=== PATIENT | female | born 1965 | race Caucasian/White ===

== ENCOUNTER 2021-11-09 05:02 | Day surgery (SDC) | payer OTHER ==
[2021-11-04 14:44] VITALS: BMI 30.7
[2021-11-09] MEDS ORDERED: MIDAZOLAM HCL 2 MG/2 ML SINGLE DOSE VIAL ONE (12:33)
[2021-11-09] MEDS ORDERED: ACETAMINOPHEN 1000 MG/100 ML BAG IVPB ONE (13:29)
[2021-11-09] MEDS ORDERED: DEXTROSE 5%-0.45% SALINE 1,000 ML IV SCH (13:30)
[2021-11-09] MEDS ORDERED: IBUPROFEN 800 MG/8 ML IJ IVPB SCH (13:30)
[2021-11-09] MEDS ORDERED: ceFAZolin SODIUM 1 GM VIAL ONE (13:33)
[2021-11-09] MEDS ORDERED: ceFAZolin SODIUM 1 GM VIAL IVPB ONE (13:35)
[2021-11-09] MEDS ORDERED: PROPOFOL 20 ML ONE (13:37)
[2021-11-09 15:55] VITALS: RESP 20; TEMP 98.1
[2021-11-09 16:00] VITALS: BP 118/74; PULSE 65
== END 2021-11-09 15:55 | disposition home or self-care (01) ==
LOC: JASU-SURG 05:02
PROVIDERS: ATTEND Urology
PROC: 0TF7XZZ Fragmentation in Left Ureter, External Approach (ICD-10-PCS; principal; 2021-11-09 13:00)
DX: N20.1 Calculus of ureter (principal)